=== PATIENT | male | born 1970 | race Asian ===

== ENCOUNTER 2019-02-02 15:23 | Emergency (ER) | payer OTHER ==
[~2019-02-02] VITALS: Ht 182.9 cm; Wt 103.0 kg
[2019-02-02 15:28] VITALS: Ht 182.9 cm; Wt 103.0 kg
[2019-02-02 17:06] LABS: BASOPHIL % 0.4 % (0-2); PLATELET COUNT 260 x10^3mcL (130-400); RED CELL DISTRIBUTION WIDTH 13.6 % (11.5-14.5); UA SPECIFIC GRAVITY 1.015 (1.005-1.035); microscopic required? YES; urine erythrocyte TRACE (NEGATIVE)
[2019-02-02 17:17] LABS: AMPHETAMINE QUAL UR NONE DETECTED (See below); CALCIUM 9.2 mg/dL (8.5-10.1); CARBON DIOXIDE 28.4 mmol/L (21-32); CHLORIDE SERUM 105 mmol/L (98-107); CREATININE SERUM 1.1 mg/dL (0.7-1.3); GFR1 > 60 mL/min; GLUCOSE SERUM 115 mg/dL (74-106); POTASSIUM SERUM 3.7 mmol/L (3.5-5.1); SODIUM SERUM 143 mmol/L (136-145)
[2019-02-02 17:29] LABS: ALBUMIN 3.8 g/dL (3.4-5.0); ALKALINE PHOSPHATASE 46 U/L (46-116); ALT/SGPT 13 U/L (16-63); AMYLASE 50 U/L (25-115); AST/SGOT 6 U/L (15-37); BILIRUBIN TOTAL 0.45 mg/dL (0.20-1.00); LIPASE 83 IU/L (73-393); MAGNESIUM 2.3 mg/dL (1.8-2.4); T4(THYROXINE) 8.1 ug/dL (4.7-13.3)
[2019-02-02 17:37] LABS: CHOLESTEROL 232 mg/dL (<200); HDL CHOLESTEROL 72 mg/dL (40-60)
[2019-02-02 18:29] VITALS: BP 125/76
[2019-02-02] MEDS ORDERED: GABAPENTIN100 M2 (18:31)
[2019-02-02] MEDS ORDERED: LOSARTAN POTASS25 M1 (18:31)
[2019-02-02] MEDS ORDERED: PHARMASSURE FO0.4 MG (18:32)
== END 2019-02-02 20:08 | disposition left against medical advice (07) ==
LOC: ED 15:23
PROVIDERS: Emergency Medicine
DX: R55 Syncope and collapse (principal); M54.9 Dorsalgia, unspecified; R07.89 Other chest pain; I10 Essential (primary) hypertension; E78.00 Pure hypercholesterolemia, unspecified; M10.9 Gout, unspecified; I82.409 Acute embolism and thrombosis of unspecified deep veins of unspecified lower extremity
CPT/HCPCS: 82962; 83880; G0480; Q0092; Q9967